=== PATIENT | male | born 1945 | race Caucasian/White ===

== ENCOUNTER → 2017-06-13 | Outpatient (CLI) | payer MEDICARE, OTHER ==
[~2017-06-13] MED LIST: ASPI-1471 PO; CEPH500C24 PO; CHOL10005 PO; CIPR-344 PO; FINA5TAB67 PO; LISI-1 PO; LISI5TAB25 PO; SILD100T59 PO; SIMV-42 PO; SIMV-54 PO; TADA10TA14 PO; TAMS0.4C25 PO; TAMS0.4C70 PO
--- NOTE | 2017-06-13 12:56 | RADIOLOGY IMAGING REPORT ---
FACILITY: [facility] PATIENT NAME: Gianluca Ortiz : 1945 MR: [id number] V: [id number] EXAM DATE: ORDERING PHYSICIAN: ERWIN SCOTT TECHNOLOGIST: Location: [facility] Patient: Gianluca Ortiz : 1945 Visit/Account:[id number] Date of Sevice: 06/13/2017 CHEST W/O CONTRAST Provided history: lung nodule, hx. of rectal cancer Additional pertinent history: none TECHNIQUE: Spiral scan was obtained from the lower neck through the lung bases without intravenous co ntrast. Source images were reformatted in the coronal and sagittal planes. Additional series performed today: none One of the following dose optimization techniques was utilized in the performance of this exam: Autom ated exposure control; adjustment of the mA and/or kV according to the patient's size; or use of an i terative reconstruction technique. Specific details can be referenced in the facility's radiology CT exam operational policy. COMPARISON STUDIES: Upper images from CT abdomen 06/25/16 FINDINGS: Lungs / pleura / dania: There are scattered punctate calcified nodules in the left lung typical of b enign granulomata. Largest located image 155 left upper lobe. A 3 x 4.5 mm noncalcified subpleural nodule of the lingula is unchanged from prior exam. One addition al noncalcified nodule projects along the course of the upper left major fissure measuring only 2 mm. The right lung demonstrates additional benign calcified granulomata. There is a noncalcified subpleural micronodule right lower lobe image 258 measuring 3 mm. Another noncalcified micronodule right upper lobe, image 94 measures 2 x 2 mm One additional noncalcified micronodule projects along the course of an accessory fissure, image 163. Lower neck: negative Mediastinum: negative Heart / pericardium: negative Vessels: Mild three-vessel coronary artery calcification. Lymph nodes: negative Body wall: negative Upper abdomen: Interim resolution of hydronephrosis of the kidneys. Bones: negative IMPRESSION: Stable noncalcified nodule of the lingula. Additional micronodules are defined in both lungs most of which are present benign granulomata. Noncalcified nodules defined as well are of low suspicion. Give n the patient's history of carcinoma, would merely suggest a follow-up low-dose CT chest in one year. Report Dictated By: Salvador Boyce MD at 06/13/2017 12:33 PM Report E-Signed By: Salvador Boyce MD at 06/13/2017 12:53 PM WSN:[id number]
== END ==
LOC: CT 01:47
PROVIDERS: ATTEND Internal Medicine
DX: R91.8 Other nonspecific abnormal finding of lung field (principal)
CPT/HCPCS: 71250

== ENCOUNTER → 2017-07-08 | Outpatient (CLI) | payer MEDICARE, OTHER | LOC: LAB 09:39 | PROVIDERS: ATTEND Urology | DX: R97.20 Elevated prostate specific antigen [PSA] (principal) | CPT/HCPCS: 36415; 84153 ==

== ENCOUNTER → 2017-08-02 | Outpatient (CLI) | payer MEDICARE, OTHER | LOC: LAB 10:33 | PROVIDERS: ATTEND Urology | DX: N39.0 Urinary tract infection, site not specified (principal); B96.20 Unspecified Escherichia coli [E. coli] as the cause of diseases classified elsewhere | CPT/HCPCS: 87077; 87088; 87186 ==

== ENCOUNTER → 2018-02-26 | Outpatient (CLI) | payer MEDICARE, OTHER | LOC: LAB 10:59 | PROVIDERS: ATTEND Urology | DX: N39.0 Urinary tract infection, site not specified (principal); R33.9 Retention of urine, unspecified; B96.20 Unspecified Escherichia coli [E. coli] as the cause of diseases classified elsewhere | CPT/HCPCS: 87077; 87088; 87186 ==

== ENCOUNTER → 2018-06-04 | Outpatient (CLI) | payer MEDICARE, OTHER ==
--- NOTE | 2018-06-04 16:30 | RADIOLOGY IMAGING REPORT ---
FACILITY: [facility] PATIENT NAME: Gianluca Ortiz : 1945 MR: [id number] V: [id number] EXAM DATE: ORDERING PHYSICIAN: ERWIN SCOTT TECHNOLOGIST: Location: [facility] Patient: Gianluca Ortiz : 1945 Visit/Account:[id number] Date of Sevice: 06/04/2018 CT CHEST W/O CONTRAST History: lung nodule TECHNIQUE: Contiguous axial images were performed through the chest to the level of the adrenal gla nds. No IV contrast was administered. Coronal and sagittal reformatting was also performed.Dose Lower ing Technique One of the following dose optimization techniques was utilized in the performance of this exam: Autom ated exposure control; adjustment of the mA and/or kV according to the patient's size; or use of an i terative reconstruction technique. Specific details can be referenced in the facility's radiology C T exam operational policy. COMPARISON STUDIES: June 13, 2017. Lungs / Pleura: Scattered punctate calcified nodules are again noted throughout the lungs consisten t with prior granulomatous disease. The previously noted 3 x 4.5 mm calcified nodule in the left upper lobe appears unchanged in size and is best seen on image 155 of series 4.. There Is a 3 mm noncalcified nodule anterior left upper lobe appears unchanged best seen on image 14 5. the 3 x 4.5 mm noncalcified subpleural nodule in the lingula is also unchanged best seen on image 213 2 mm intrafissural nodule medial upper left major fissure is unchanged best seen on image 110 series 4 There is a 3 mm noncalcified nodule lateral aspect of the right lower lobe also unchanged best seen o n image 265. Intrafissural 2 mm nodule along the right minor fissure image 167 is also unchanged 2 mm noncalcified micronodule right upper lobe also unchanged, image 97 Mediastinum/nodes: negative. Heart and vessels: Mild coronary artery calcifications Musculoskeletal / Body wall: Spondylotic changes of the thoracic spine Upper abdomen: Incompletely imaged is moderate perinephric stranding bilaterally. IMPRESSION: The bilateral calcified and noncalcified pulmonary nodules have remained stable when compared to the prior study and are of doubtful significance Report Dictated By: Anay Liao MD at 06/04/2018 3:58 PM Report E-Signed By: Anay Liao MD at 06/04/2018 4:23 PM WSN:[email or web address]
== END ==
LOC: CT 06:55
PROVIDERS: ATTEND Internal Medicine
DX: I25.10 Atherosclerotic heart disease of native coronary artery without angina pectoris (principal); R91.8 Other nonspecific abnormal finding of lung field
CPT/HCPCS: 71250

== ENCOUNTER 2018-10-31 08:12 | Emergency (ER) | payer MEDICARE, OTHER ==
--- NOTE | 2018-10-31 08:16 | ER Report ---
History and Physical Time Seen By MD: 08:20 HPI/ROS CHIEF COMPLAINT: Difficulty with self catheter HISTORY OF PRESENT ILLNESS: Patient is a 79-year-old male who for the past 2 years has been doing self catheterizations. States that he has been unable to pass the catheter since last night is having some overflow incontinence. He doesn't to some suprapubic abdominal discomfort. Denies fevers or chills. Eyes any other symptoms. Patient does also have a history of colorectal cancer and is status post colostomy. Patient does follow with urology and Dr. Burdick states he recently had a PSA drawn that was "within the normal range". REVIEW OF SYSTEMS: Respiratory: No cough, no dyspnea. Cardiovascular: No chest pain, no palpitations. Gastrointestinal: No vomiting, no abdominal pain. Musculoskeletal: No back pain. : Urinary retention Allergies: Coded Allergies: No Known Drug Allergies (Unverified , 09/21/16) Home Meds Active Scripts Ciprofloxacin Hcl 500 Mg Tab (CIPRO 500 MG TAB) 500 Mg Tablet, 500 MG PO BID, #14 TAB 0 Refills Prov:ALEM GONSALES MD 10/31/18 Tamsulosin Hcl (FLOMAX) 0.4 Mg Cap.er.24h, 0.4 MG PO QHS for 7 Days, #7 CAP 0 Refills Prov:ALEM GONSALES MD 10/31/18 Simvastatin (SIMVASTATIN) 40 Mg Tablet, 1 TAB PO QHS, #90 TAB 3 Refills Prov:ERWIN SCOTT MD 04/07/18 Lisinopril (LISINOPRIL) 5 Mg Tablet, 1 TAB PO QDAY, #90 TAB 3 Refills Prov:ERWIN SCOTT MD 04/07/18 Tadalafil (CIALIS) 10 Mg Tablet, 10 MG PO QDAY PRN for sex, #10 TAB 3 Refills Prov:ERWIN SCOTT MD 01/01/17 Reported Medications Tamsulosin Hcl (TAMSULOSIN HCL) 0.4 Mg Cap.er.24h, 0.4 MG PO QDAY, CAP 01/01/17 Finasteride (FINASTERIDE) 5 Mg Tablet, 1 TAB PO QDAY 01/01/17 Tamsulosin Hcl (FLOMAX) 0.4 Mg Cap.er.24h, 1 CAP PO QDAY, CAP 01/01/17 Cholecalciferol (Vitamin D3) (VITAMIN D3) 1,000 Unit Tablet, 1000 TAB PO DAILY, #100 TAB 4 Refills 10/18/14 Aspirin (ASPIR 81) 81 Mg Tablet.dr, 1 TAB PO QDAY, TAB 10/18/14 Past Medical/Surgical History Past medical history for hypertension, hyperlipidemia, depression, history of colorectal cancer, history of depression, history of elevated BMI Smoking Status: Never Smoker Hx Substance Use Disorder: No Hx Alcohol Use: No Constitutional Vital Sign - Last 24 Hours 10/31/18 10/31/18 10/31/18 10/31/18 08:19 08:19 08:22 08:27 Temp 98.5 Pulse 86 90 73 Resp 16 B/P (MAP) 173/126 173/126 (142) Pulse Ox 94 91 91 O2 Delivery Room Air 10/31/18 10/31/18 10/31/18 10/31/18 08:30 08:32 08:37 08:42 Pulse 68 69 69 B/P (MAP) 170/97 (121) Pulse Ox 89 90 89 10/31/18 10/31/18 10/31/18 10/31/18 08:47 08:52 08:57 09:02 Pulse 66 63 64 60 Pulse Ox 89 90 89 88 10/31/18 09:07 Pulse 60 Pulse Ox 90 Physical Exam General Appearance: The patient is alert, has no immediate need for airway protection and no current signs of toxicity. Respiratory: Chest is non tender, lungs are clear to auscultation. Cardiac: regular rate and rhythm [ ] Gastrointestinal: Abdomen is soft and non tender, no masses, bowel sounds normal. Colostomy site clean, ostomy pink Musculoskeletal: Neck: Neck is supple and non tender. Extremities have full range of motion and are non tender. Skin: No rashes or lesions. Medical Decision Making Data Points Result Diagram: 10/31/18 0840 Laboratory Hematology Test 10/31/18 08:40 10/31/18 08:57 Sodium Level 139 mmol/L (137-145) Potassium Level 4.2 mmol/L (3.5-5.0) Chloride Level 105 mmol/L (98-107) Carbon Dioxide Level 25 mmol/L (22-30) Blood Urea Nitrogen 14 mg/dl (9-21) Creatinine 1.20 mg/dl (0.66-1.25) Glomerular Filtration Rate Calc 59.5 Random Glucose 116 mg/dl (75-110) Calcium Level 8.8 mg/dl (8.4-10.2) Urine Color Yellow Urine Clarity Clear Urine pH 7.0 pH (4.8-9.5) Urine Specific [place] 1.009 Urine Protein Negative mg/dL (NEGATIVE) Urine Glucose (UA) Negative mg/dL (NEGATIVE) Urine Ketones Negative mg/dL (NEGATIVE) Urine Blood Small (NEGATIVE) Urine Nitrite Positive (NEGATIVE) Urine Bilirubin Negative (NEGATIVE) Urine Urobilinogen Negative mg/dL (0.2-1.9) Urine Leukocyte Esterase Moderate (NEGATIVE) Urine RBC 5 /HPF (0-2/HPF) Urine WBC 10 /HPF (0-5/HPF) Urine Squamous Epithelial Cells None /LPF (NONE-FEW) Urine Bacteria Few /HPF (NONE-FEW) Urine Mucus None /HPF (NONE-FEW) Chemistry Test 10/31/18 08:40 10/31/18 08:57 Glomerular Filtration Rate Calc 59.5 Calcium Level 8.8 mg/dl (8.4-10.2) Urine Color Yellow Urine Clarity Clear Urine pH 7.0 pH (4.8-9.5) Urine Specific [place] 1.009 Urine Protein Negative mg/dL (NEGATIVE) Urine Glucose (UA) Negative mg/dL (NEGATIVE) Urine Ketones Negative mg/dL (NEGATIVE) Urine Blood Small (NEGATIVE) Urine Nitrite Positive (NEGATIVE) Urine Bilirubin Negative (NEGATIVE) Urine Urobilinogen Negative mg/dL (0.2-1.9) Urine Leukocyte Esterase Moderate (NEGATIVE) Urine RBC 5 /HPF (0-2/HPF) Urine WBC 10 /HPF (0-5/HPF) Urine Squamous Epithelial Cells None /LPF (NONE-FEW) Urine Bacteria Few /HPF (NONE-FEW) Urine Mucus None /HPF (NONE-FEW) Urinalysis Test 10/31/18 08:57 Urine Color Yellow Urine Clarity Clear Urine pH 7.0 pH (4.8-9.5) Urine Specific [place] 1.009 Urine Protein Negative mg/dL (NEGATIVE) Urine Glucose (UA) Negative mg/dL (NEGATIVE) Urine Ketones Negative mg/dL (NEGATIVE) Urine Blood Small (NEGATIVE) Urine Nitrite Positive (NEGATIVE) Urine Bilirubin Negative (NEGATIVE) Urine Urobilinogen Negative mg/dL (0.2-1.9) Urine Leukocyte Esterase Moderate (NEGATIVE) Urine RBC 5 /HPF (0-2/HPF) Urine WBC 10 /HPF (0-5/HPF) Urine Squamous Epithelial Cells None /LPF (NONE-FEW) Urine Bacteria Few /HPF (NONE-FEW) Urine Mucus None /HPF (NONE-FEW) ED Course/Re-evaluation ED Course 10/31/2018 8:37:40 am patient with approximately 1 L of fluid by bladder scanner. We'll place Palma catheter. We will have patient maintained Palma catheter through the weekend follow-up next week with Dr. Burdick. Please note patient was on Flomax but recently discontinued. 10/31/2018 9:24:55 am patient has approximate 850 mL of urine after catheterization, we'll place the patient on Cipro for prophylaxis but also a patient does show evidence of positive nitrites and leuk trase in the urine so we'll treat for urinary tract infection. Decision to Disposition Date: Oct 31, 2018 Decision to Disposition Time: 09:25 Depart Departure Latest Vital Signs Vital Signs Date Time Temp Pulse Resp B/P (MAP) Pulse Ox O2 Delivery O2 Flow Rate FiO2 10/31/18 09:07 60 90 10/31/18 08:30 170/97 (121) 10/31/18 08:19 98.5 16 Room Air Impression: Primary Impression: Acute urinary retention Condition: Improved Disposition: HOME OR SELF-CARE Referrals: ERWIN SCOTT MD (PCP) USMAN BURDICK MD call friday to schedule follow up with Dr Burgos next week for reevaluation New Scripts Ciprofloxacin Hcl 500 Mg Tab (CIPRO 500 MG TAB) 500 Mg Tablet 500 MG PO BID, #14 TAB 0 Refills Prov: ALEM GONSALES MD 10/31/18 Tamsulosin Hcl (FLOMAX) 0.4 Mg Cap.er.24h 0.4 MG PO QHS for 7 Days, #7 CAP 0 Refills Prov: ALEM GONSALES MD 10/31/18 Patient Instructions: Palma Catheter Insertion (GEN), Palma Catheter Placement and Care (DC) Additional Instructions: Follow-up with Dr. Burdick next week by calling on Friday for an appointment for reevaluation and possible removal of Palma catheter. Take your Flomax and antibiotics as directed continue the antibiotics until the Palma catheter is removed next week ALEM GONSALES MD Oct 31, 2018 08:16
[2018-10-31] MEDS ORDERED: LIDOCAINE 2% 200MG/10ML UROJET TP ONE (08:30)
[2018-10-31] MEDS ORDERED: CIPR-344 PO (08:50)
[2018-10-31] MEDS ORDERED: TAMS0.4C25 PO (08:50)
[2018-10-31 09:28] VITALS: BP 157/93
== END 2018-10-31 09:48 | disposition home or self-care (01) ==
LOC: ER 08:34
DX: R33.9 Retention of urine, unspecified (principal)
CPT/HCPCS: 81001; 82310; 82374; 82435; 82565; 82947; 84132; 84295; 84520; 87077; 87088; 87186; 99283

== ENCOUNTER → 2018-12-29 | Outpatient (CLI) | payer MEDICARE, OTHER ==
--- NOTE | 2018-12-29 14:43 | RADIOLOGY IMAGING REPORT ---
FACILITY: [facility] PATIENT NAME: Gianluca Ortiz : 1945 MR: [id number] V: [id number] EXAM DATE: ORDERING PHYSICIAN: USMAN HUGO TECHNOLOGIST: Location: [facility] [place] Patient: Gianluca Ortiz : 1945 Visit/Account:[id number] Date of Sevice: 12/29/2018 KIDNEYS EXAMINATION: Renal ultrasound. History: Chronic urinary retention, UTIs COMPARISON STUDIES: September 30, 2016 FINDINGS: Kidneys: Right kidney- 10.4 x 6.9 x 6.4 cm Left kidney- 10.2 x 6.7 x 4.8 cm Uniform and symmetric blood flow in each kidney by Doppler ultrasound. Hydronephrosis: none Resistive index on the right 0.65 non the left 0.71. There is a 1.3 cm cyst projecting from the lowe r pole the left kidney Bladder: Prevoid volume 765 mL. Post catheter residual zero. Bilateral ureteral jets are present Prostate gland protrudes into the floor the urinary bladder. The prostate volume is 21.4 mL Abdominal aorta and IVC: Aorta and IVC are patent by Doppler ultrasound. IMPRESSION: Urinary bladder prevoid volume 765 mL with the posterior catheterization residual of zero Prostate gland volume is 21.4 mL 1.3 cm lower pole left renal cyst Report Dictated By: Anay Liao MD at 12/29/2018 2:31 PM Report E-Signed By: Anay Liao MD at 12/29/2018 2:34 PM WSN:[id number]
== END ==
LOC: US 01:11
PROVIDERS: ATTEND Urology
DX: R33.9 Retention of urine, unspecified (principal); N39.0 Urinary tract infection, site not specified; N40.1 Benign prostatic hyperplasia with lower urinary tract symptoms; N28.1 Cyst of kidney, acquired
CPT/HCPCS: 76705